=== PATIENT | male | born 1970 | race Caucasian/White ===

== ENCOUNTER 2016-11-09 11:28 | Observation (INO) | payer SELFPAY ==
[~2016-11-09] VITALS: Ht 175.3 cm; Wt 76.4 kg
[~2016-11-09 11:28] MED LIST: AZIT250T81 PO; CYCL10TA45 PO; HYDR-3702 PO
--- OUTSIDE RECORDS SUMMARY | 2016-11-09 11:31 | XMS REPORT | Continuity of Care Document ---
Author Author [facility] Organization [facility] Address Unknown Phone Unavailable Allergies Active Description Code Type Severity Reaction Onset Reported/Identified Relationship to Patient Clinical Status Yes No Known Drug Allergies Drug Allergy Unknown NONE 08/11/2013 Yes No Known Medication Allergies NKMA N/A N/A 02/27/2014 Medications Problems Procedures Results Encounters ACCT No. Visit Date/Time Discharge Status Pt. Type Provider Facility Loc./Unit Complaint [id number] 08/11/2013 12:02:00 2013 15:19:00 DIS Emergency Lenora MRALOW, Arnulfo Vides [facility] SASHA
--- OUTSIDE RECORDS SUMMARY | 2016-11-09 11:34 | XMS REPORT | Continuity of Care Document ---
Author Author [facility] Organization [facility] Address Unknown Phone Unavailable Allergies Active Description Code Type Severity Reaction Onset Reported/Identified Relationship to Patient Clinical Status Yes No Known Drug Allergies Drug Allergy Unknown NONE 08/11/2013 Yes No Known Medication Allergies NKMA N/A N/A 02/27/2014 Medications Problems Procedures Results Encounters ACCT No. Visit Date/Time Discharge Status Pt. Type Provider Facility Loc./Unit Complaint [id number] 08/11/2013 12:02:00 2013 15:19:00 DIS Emergency Lenora MARLOW, Arnulfo Vides [facility] SASHA
[2016-11-09] MEDS ORDERED: IBP200T PO (11:48)
[2016-11-09] MEDS ORDERED: SODIUM CHLORIDE FLUSH 3 ML SYR IV PRN (12:20)
[2016-11-09 12:40] LABS: BASOPHILS % (AUTO) 1 % (0-2); EOSINOPHILS # (AUTO) 0.2 10^3uL; EOSINOPHILS % (AUTO) 3 % (0-4); LYMPHOCYTES # (AUTO) 2.1 X10^3; MEAN CORPUSCULAR VOLUME 94 FL (80-100); MEAN PLATELET VOLUME 9.6 FL (6.0-9.5); MONOCYTES # (AUTO) 0.6 X10^3; MONOCYTES % (AUTO) 9 % (3-11); NEUTROPHILS # (AUTO) 3.3 X10^3; NEUTROPHILS % (AUTO) 54 % (51-67); PLATELET COUNT 262 10^3uL (150-450)
[2016-11-09 12:41] LABS: MEAN CORPUSCULAR HEMOGLOBIN 32.9 PG (26.0-34.0)
[2016-11-09 12:49] LABS: ALBUMIN 4.1 g/dL (3.4-5.0); ANION GAP 12.1 MEQ/L (3-15); CALCULATED IONIZED CALCIUM 4.1 mg/dL (3.8-4.6)
--- NOTE | 2016-11-09 13:13 | Diagnostic Imaging Report ---
INDICATION: Back pain. FINDINGS: Upright chest shows the lungs to be clear. There is nipple piercing noted on the left. Heart is not enlarged. There is no pulmonary edema. No hilar adenopathy. No pneumothorax or pleural effusion. Upright and supine abdomen shows no free air under the diaphragm. There is no evidence of stool burden within the colon. There is actually very little stool present. Stomach and small bowel show some air present with no distended loops of bowel or air-fluid levels. There is no organomegaly. No pathologic calcification. There is question of possible pars defect along the L5 facet on the left. IMPRESSION: 1. No acute changes noted within the abdomen. No evidence of bowel obstruction. 2. Question of possible pars defect noted on the left at L5. Dictated by: Dictated on workstation # [id number]
[2016-11-09] MEDS ORDERED: HYDROmorphone 1 MG/ML (DILAUDID) SYRINGE IV ONE (13:25)
--- NOTE | 2016-11-09 13:57 | History and Physical (E) ---
History & Physical PCP: NONE CC: Rectal bleeding HPI: Ira is a 46 year old male who comes to the ED for complaints of bright red rectal bleeding. Noticed it this am, red blood on toilet tissue and one drop in toilet. It scared him to where he came to the ED. He admits to having chronic back pain and take 6-8 ibuprofen (200mg) tabs several times a day for a long time. Anoscope in ED showed redness and irritation in rectal vault. No fevers, no diarrhea, WBC normal, HGB 14.9. Abdominal series was negative. Lipase elevated over 1000. No alcohol use reported. Admits to THC use at times. He denied any chest pain or severe abdominal pain surprisingly. No vomiting. He does admit to GERD like symptoms and gas. No weight loss, no fatigue reported. PMH: Asthma Chronic back pain- no reported injury Borderline HTN Umbilical Hernia Tobacco Abuse Kidney Stones PSH: Kidney stone extraction Shoulder surgery Knee Surgery T&A ALLERGIES: NONE HOME MEDICATIONS: Ibuprofen daily FH: Father has diverticulitis- colon resection Mother is well SH: - 6 children heavy Smoker, 1 1/2-2 PPD no alcohol, works at [employer], Admits to THC use ROS: CONSTITUTION: Denies weight loss or gain. Denies fever or chills. HEENT: No change in vision or hearing. No sores in mouth, sore throat. CV: No chest pain, palpitations. PULM: No cough, shortness of breath, difficulty breathing. GI: Endorses mild upset stomach, No nausea, No vomiting, No constipation, Occasional diarrhea. Endorses red blood in stool. : No dysuria. No blood in urine. MS: No new muscle or joint aches and pains.Chronic back pain NEURO: No numbness or tingling. No weakness. INTEG: No rashes, lesions, or sores. ENDO: No heat or cold intolerance. No polydipsia or polyuria. HEME/LYMPH: No easy bruising or bleeding. No swollen glands. PSYCH: No change in mood or behavior. OBJECTIVE: Vital Signs Date Time Temp Pulse Resp B/P Pulse Ox O2 Delivery O2 Flow Rate FiO2 11/09/16 11:48 98.5 101 20 168/90 96 Room Air GEN: Awake, alert, oriented, NAD HEENT: EOMI, PERRL, moist oral mucosa. Ear piercing on tragus bilaterally CV: RRR S1 S2 normal with no murmur LUNGS: CTA B ABD: Soft, Mild epigastrium tenderness, with normal bowel sounds. EXTR: No C/C/E. Normal peripheral pulses. INTEG: No rash. multiple tattoos NEURO: No focal motor neuro deficit. Weight: 77.9 kg Laboratory Results Past 24 Hrs 11/09/16 12:34: Alanine Aminotransferase (ALT/SGPT) 20, Albumin 4.1, Albumin/Globulin Ratio 1.413, Alkaline Phosphatase 50, Anion Gap 12.1, Aspartate Amino Transf (AST/SGOT ) 21, BUN/Creatinine Ratio 17, Basophils # (Auto) 0.0, Basophils (%) (Auto) 1, Blood Urea Nitrogen 13, Calcium Level 9.3, Calcium/Ionized Calcium Ratio 4.1, Calculated Osmolality 273, Carbon Dioxide Level 24, Chloride Level 110, Creatinine 0.77, Eosinophils # (Auto) 0.2, Eosinophils (%) (Auto) 3, Estimat Glomerular Filtration Rate 131.0, Estimated GFR (Non- 108.3, Glucose Level 87, Hematocrit 42.60, Hemoglobin 14.9, Lipase 1054, Lymphocytes # (Auto) 2.1, Lymphocytes (%) (Auto) 34, Mean Corpuscular Hemoglobin 32.9, Mean Corpuscular Hemoglobin Concent 35.0, Mean Corpuscular Volume 94, Mean Platelet Volume 9.6, Monocytes # (Auto) 0.6, Monocytes (%) (Auto) 9, Neutrophils # (Auto ) 3.3, Neutrophils (%) (Auto) 54, Platelet Count 262, Potassium Level 4.1, Red Blood Count 4.53, Red Cell Distribution Width 12.6, Sodium Level 142, Total Bilirubin 0.4, Total Protein 7.0, White Blood Count 6.20 11/09/16 13:19: Stool Occult Blood Negative IMAGING- Abdominal series negative in the ED ASSESSMENT/PLAN: Ira is a 46 year old male who comes to the ED today 11-09-16 for bright red rectal bleeding ? Hemorrhoidal? Colitis? and elevated lipase. Concerning for Pancreatitis? never has had before and does not use alcohol, mild abdominal pain reported today Asthma- stable- was given inhaler by a friend- doesn't have one of his own Chronic Back Pain- uses 6-8 ibuprofen several times a day. This is on hold. Will use IV Dilaudid for now. HTN- not on meds, could be up due to amount of ibuprofen and Pain Tobacco Abuse- Nicotine patch F/V/E: IV Fluids- Clear liquids this taurus if remains stable Code Status: Full Code Disposition: Observation for now will have UR review case. See orders, May need CT abdomen and Pelvis - will see how well he does, Colonoscopy if continues to bleed, he is concerned he doesnt have insurance, Discussed Ester Primitivo or Benito Graf in [facility] for follow up. Allergies/Home Medications Allergies: Coded Allergies: No Known Allergies (Verified Allergy, Unknown, 11/09/16) Reported Home Medications Scheduled PRN Ibuprofen (Ibuprofen) 6-8 TAB PO TID PRN PRN PAIN (Reported) Discontinued Medications Azithromycin (Zithromax Z-Jatin) 250 MG PO SEE INSTRUCTIONS Discontinued Reason: Update list Cyclobenzaprine HCl (Flexeril) 10 MG PO Q8H Discontinued Reason: Update list Hydrocodone Bit/Acetaminophen (Hydrocodon-Acetaminophen 5-325) 1-2 EACH PO Q6H Discontinued Reason: Update list Copies to: End of Report . Roseann Paz APRN November 09, 2016 13:57 CECILIA RAIN DO November 09, 2016 15:51
[2016-11-09] MEDS ORDERED: PANTOPRAZOLE IV 40 MG in SODIUM CHLORIDE FLUSH 10 ML IV SCH (14:05)
[2016-11-09] MEDS ORDERED: ONDANSETRON 2 MG/ML (Z0FRAN) 2 ML VIAL IV PRN (14:05)
[2016-11-09] MEDS ORDERED: ACETAMINOPHEN 325 MG TAB (TYLENOL) PO PRN (14:05)
--- NOTE | 2016-11-09 14:10 | NUR ---
Patient admitted to room 302 from ER. Patient reports rectal bleeding at work this morning. Denies abdominal pain but states chronic back pain which was relieved by the dose of IV Dilaudid he received in ER. Patient reports several chronic health issues but does not have a PCP.
[2016-11-09 14:17] VITALS: BP 135/90
[2016-11-09 14:32] LABS: AMPHETAMINE SCREEN, URINE Negative (Negative); CANNABINOID SCREEN, URINE Positive (Negative); METHAMPHETAMINE SCREEN URINE S NEGATIVE (NEGATIVE); OPIATE SCREEN URINE Negative (Negative); PROPOXYPHENE STAT NEGATIVE (NEGATIVE)
[2016-11-09] MEDS ORDERED: NICOTINE 21 MG (NICODERM) PATCH TD SCH (14:35)
[2016-11-09 15:59] VITALS: BP 125/82
[2016-11-09] MEDS: HYDROmorphone 1 MG/ML (DILAUDID) SYRINGE IV PRN ×2 (17:16→21:49)
[2016-11-09] MEDS: SODIUM CHLORIDE FLUSH 10 ML SYR IV PRN ×2 (17:17→21:49)
--- NOTE | 2016-11-09 17:31 | Diagnostic Imaging Report ---
INDICATION: Low back pain extending into right SI region. FINDINGS: AP pelvis shows SI joints are symmetrical. There is some sclerotic change along the SI joints bilaterally, predominantly in the upper third. This is symmetrical in appearance. The sacral foramen appears normal. No fractures are demonstrated. Pubic symphysis is in good alignment. Femoral heads show normal articulation. There is moderate degenerative disease noted along the femoral acetabular joint slightly more severe on the right with sclerosis and mild hypertrophic changes. IMPRESSION: 1. Mild degenerative changes with sclerosis along the SI joints bilaterally. 2. Degenerative changes of the hips more prominent on the right. Dictated by: Dictated on workstation # [id number]
--- NOTE | 2016-11-09 17:37 | Diagnostic Imaging Report ---
INDICATION: Back pain, right S1 and L5 area. COMPARISON STUDIES: None. FINDINGS: Frontal and lateral views of the lumbar spine demonstrate mild facet arthropathy at L5-S1. Mild disc space narrowing is present at this level. No fracture or subluxation is present. IMPRESSION: There are mild degenerative changes at L5-S1. Dictated by: Dictated on workstation # [id number]
--- NOTE | 2016-11-09 18:18 | NUR ---
Patient has remained NPO without complaint of abdominal pain. Lab was here at 1800 for hemoglobin check. Reported back pain which was relieved by PRN Dilaudid dose.
--- NOTE | 2016-11-09 18:45 | NUR ---
Hemoglobin result= 13.9. Advanced diet to clear liquids. Patient was able to take this without difficulty.
[2016-11-10 00:06] VITALS: BP 113/67
--- NOTE | 2016-11-10 02:57 | NUR ---
Patient calls, states he has an "excruciating headache". Offered Tylenol and Dilaudid, Tylenol given per PRN list. Patient states "It's because of this bed and because I can't sleep in it." Encouraged patient to get up into recliner, and offered warm blanket. Will continue to monitor.
[2016-11-10 05:46] LABS: BASOPHILS % (AUTO) 1 % (0-2); EOSINOPHILS # (AUTO) 0.3 10^3uL; EOSINOPHILS % (AUTO) 5 % (0-4); LYMPHOCYTES # (AUTO) 2.1 X10^3; MEAN CORPUSCULAR HGB CONC 33.9 g/dL (31.0-37.0); MEAN CORPUSCULAR VOLUME 95 FL (80-100); MEAN PLATELET VOLUME 9.6 FL (6.0-9.5); MONOCYTES # (AUTO) 0.6 X10^3; MONOCYTES % (AUTO) 11 % (3-11); NEUTROPHILS # (AUTO) 2.6 X10^3; NEUTROPHILS % (AUTO) 46 % (51-67); PLATELET COUNT 245 10^3uL (150-450); WHITE BLOOD COUNT 5.67 10^3uL (4.0-11.0)
[2016-11-10 05:56] LABS: MEAN CORPUSCULAR HEMOGLOBIN 32.1 PG (26.0-34.0)
[2016-11-10] MEDS: HYDROmorphone 1 MG/ML (DILAUDID) SYRINGE IV PRN (06:14)
--- NOTE | 2016-11-10 06:26 | NUR ---
Patient sitting in bed in position, states "I feel worse than when I came in here. I didn't even come in here for my back and now my pain is awful." Dilaudid 1mg IV given per PRN order. Patient states several times "I just want to go home" while this nurse is in room. Warm blanket provided for patient's back. Patient restless in bed trying to find comfortable position. Encouraged patient to get up to recliner if bed was uncomfortable for him, patient states "I just can't sleep in a recliner." No further needs at this time.
[2016-11-10 06:33] LABS: ANION GAP 9.3 MEQ/L (3-15)
[2016-11-10 07:36] VITALS: BP 130/84
--- NOTE | 2016-11-10 08:34 | NUR ---
NUTRITION ASSESSMENT Level 1 Patient: Ira Cox Age/Sex: 46/M Date Screened: 11-10-16 Weight: 168#/76.4 kg Height: 69 inches Primary Diagnosis: rectal bleeding Diet Order: CL Relevant labs: stool occult blood (-), glucose 90, lipase 127 Food allergies: N Nutrition Assessment Criteria Age over 80: N Body Mass Index (BMI) under 19: N Admission Screening Indicates Risk? N Moderate/High Risk Diagnosis: 3 points TPN or PPN: N NPO or clear liquid diet: Yes Serum Glucose <70 or >180: N Hgb A1c >6.7: N/A Total: 3 points Risk Screen: __ Patient at low nutritional risk based on available data; reevaluate in 5-7 days _X_ Patient at moderate nutritional risk based on available data; reevaluate in 3-5 days __ Patient at high nutritional risk; complete Nutrition Assessment within 48 hours of admission. Comments: Weight has been stable; weighed 165# in 2015. Taking 25-50% of CL diet without difficulty; will reassess as documented above.
[2016-11-10] MEDS ORDERED: NICOTINE PATCH REMOVAL TOP SCH (08:59)
[2016-11-10] MEDS ORDERED: OMEP20TA33 PO (09:13)
[2016-11-10] MEDS ORDERED: HYDR-3702 PO (09:13)
[2016-11-10] MEDS ORDERED: CYCL10TA45 PO (09:13)
--- NOTE | 2016-11-10 09:15 | Discharge Instructions (E) ---
Discharge Instructions Instructions Avoid taking any ibuprofen Monitor stools Can take a stool softener daily if needed Notify Ester Langford for a follow up appt in a week Activity Instructions as tolerates Doctor's Appointment Appt soon with Ester Langford- pt to make appt Discharge Diet: Roseann Villarreal APRN November 10, 2016 09:15
--- NOTE | 2016-11-10 09:36 | Discharge Summary (E FT) ---
Discharge Summary (E FT) Admit Date November 09, 2016 at 13:41 Discharge Date November 10, 2016 Admitting Provider Constantin Mccormick DO Primary Care Provider Attending Provider Constantin Mccormick DO Consulting Provider Hospital Course Summary HPI: Ira is a 46 year old male who comes to the ED for complaints of bright red rectal bleeding. Noticed it this am, red blood on toilet tissue and one drop in toilet. It scared him to where he came to the ED. He admits to having chronic back pain and take 6-8 ibuprofen (200mg) tabs several times a day for a long time. Anoscope in ED showed redness and irritation in rectal vault. No fevers, no diarrhea, WBC normal, HGB 14.9. Abdominal series was negative. Lipase elevated over 1000. No alcohol use reported. Admits to THC use at times. He denied any chest pain or severe abdominal pain surprisingly. No vomiting. He does admit to GERD like symptoms and gas. No weight loss, no fatigue reported. Overnight he did well- reported not sleeping well in hospital bed, back is sore Lumbar xray shows degenerative changes nothing acute Vital Signs Date Time Temp Pulse Resp B/P Pulse Ox O2 Delivery O2 Flow Rate FiO2 11/10/16 07:36 97.4 62 18 130/84 95 Room air Laboratory Results Past 24 Hrs 11/09/16 11:58: Ur Tricyclic Antidepressants Screen Negative, Urine Amphetamines Screen Negative , Urine Barbiturates Screen Negative, Urine Benzodiazepines Screen Positive, Urine Cannabinoids Screen Positive, Urine Cocaine Screen Negative, Urine Methadone Screen Negative, Urine Methamphetamines Screen Negative, Urine Opiates Screen Negative, Urine Oxycodone Screen Negative, Urine Phencyclidine Screen Negative, Urine Propoxyphene Screen Negative 11/09/16 12:34: Alanine Aminotransferase (ALT/SGPT) 20, Albumin 4.1, Albumin/Globulin Ratio 1.413, Alkaline Phosphatase 50, Amylase Level 129, Anion Gap 12.1, Aspartate Amino Transf (AST/SGOT) 21, BUN/Creatinine Ratio 17, Basophils # (Auto) 0.0, Basophils (%) (Auto) 1, Blood Urea Nitrogen 13, Calcium Level 9.3, Calcium/ Ionized Calcium Ratio 4.1, Calculated Osmolality 273, Carbon Dioxide Level 24, Chloride Level 110, Creatinine 0.77, Eosinophils # (Auto) 0.2, Eosinophils (%) ( Auto) 3, Estimat Glomerular Filtration Rate 131.0, Estimated GFR (Non- 108.3, Glucose Level 87, Hematocrit 42.60, Hemoglobin 14.9, Lipase 1054 , Lymphocytes # (Auto) 2.1, Lymphocytes (%) (Auto) 34, Mean Corpuscular Hemoglobin 32.9, Mean Corpuscular Hemoglobin Concent 35.0, Mean Corpuscular Volume 94, Mean Platelet Volume 9.6, Monocytes # (Auto) 0.6, Monocytes (%) (Auto ) 9, Neutrophils # (Auto) 3.3, Neutrophils (%) (Auto) 54, Platelet Count 262, Potassium Level 4.1, Prothromb Time International Ratio 1.0, Prothrombin Time 10.7, Red Blood Count 4.53, Red Cell Distribution Width 12.6, Sodium Level 142, Total Bilirubin 0.4, Total Protein 7.0, White Blood Count 6.20 11/09/16 13:19: Stool Occult Blood Negative 11/09/16 18:05: Hematocrit 40.30, Hemoglobin 13.8 11/10/16 05:35: Anion Gap 9.3, BUN/Creatinine Ratio 11, Basophils # (Auto) 0.0, Basophils (%) ( Auto) 1, Blood Urea Nitrogen 9, Calcium Level 8.5, Carbon Dioxide Level 28, Chloride Level 109, Creatinine 0.85, Eosinophils # (Auto) 0.3, Eosinophils (%) ( Auto) 5, Estimat Glomerular Filtration Rate 116.9, Estimated GFR (Non- 96.6, Glucose Level 90, Hematocrit 44.00, Hemoglobin 14.9, Lipase 127, Lymphocytes # (Auto) 2.1, Lymphocytes (%) (Auto) 37, Mean Corpuscular Hemoglobin 32.1, Mean Corpuscular Hemoglobin Concent 33.9, Mean Corpuscular Volume 95, Mean Platelet Volume 9.6, Monocytes # (Auto) 0.6, Monocytes (%) (Auto ) 11, Neutrophils # (Auto) 2.6, Neutrophils (%) (Auto) 46, Platelet Count 245, Potassium Level 4.1, Red Blood Count 4.64, Red Cell Distribution Width 12.4, Sodium Level 142, White Blood Count 5.67 Exam: alert and oriented, NAD- tolerating diet HEENT- PERRLA EOMI Lungs clear bilaterally CV S1S2 Abdomen soft nontender today- no further rectal bleeding and hgb 13.8 today Neuro: No focal neuro changes IMAGING- Abdominal series negative in the ED ASSESSMENT/PLAN: Ira is a 46 year old male who comes to the ED today 5-16-17 for bright red rectal bleeding likely Hemorrhoidal? and elevated lipase. Concerning for Pancreatitis? never has had before and does not use alcohol, mild abdominal pain reported today Asthma- stable- was given inhaler by a friend- doesn't have one of his own Chronic Back Pain- Avoid ibuprofen, will send home with flexeril and a few Lortab. HTN- not on meds, could be up due to amount of ibuprofen and Pain- Better today. Tobacco Abuse- Nicotine patch here but advised no smoking Code Status: Full Code Disposition: Home today per pt request- will have him establish with Ester Langford- may need colonoscopy if re bleeds. Avoid ibuprofen, use tylenol for pain or Lortab for severe pain. Discussed Ester Langford - he will call for an appt this week. Discharge Disposition Home today per request Appt with Ester Langford in 1 week for f/u New Medications: Cyclobenzaprine HCl (Flexeril) 10 Mg Tablet 10 MG PO HS Muscle Spasms #10 Ref 0 TAB Hydrocodone Bit/Acetaminophen (Hydrocodon-Acetaminophen 5-325) 1 Each Tablet 1 EACH PO Q6H Pain #10 Ref 0 TAB Omeprazole Magnesium (Prilosec OTC) 20 Mg Tablet.dr 20 MG PO DAILY #30 TAB Discontinued Medications: Ibuprofen (Ibuprofen) 200 Mg Tablet 6-8 TAB PO TID PRN PAIN Ref 0 TAB Follow up Instructions Avoid taking any ibuprofen Monitor stools Can take a stool softener daily if needed Notify Ester Langford for a follow up appt in a week Avoid using THC Copies to: End of Report . Roseann Paz [employer]OND [employer]ER November 10, 2016 09:36
--- NOTE | 2016-11-10 10:00 | NUR ---
Patient was able to eat a regular breakfast without any difficulty. No further episodes of rectal bleeding noted.
--- NOTE | 2016-11-10 10:40 | NUR ---
Gave the patient discharge instructions and printed scripts for flexeril and hydrocodone. Educated him on the importance of establishing care with a PCP for recurrent back and neck pain. Patient demonstrated verbal understanding.
--- NOTE | 2016-11-10 10:46 | NUR ---
Patient dismissed ambulatory accompanied by a LINEN SORTER.
== END 2016-11-10 10:46 | disposition home or self-care (01) ==
LOC: ED 11:30 → MED/SURG 13:41
DX: K62.5 Hemorrhage of anus and rectum (principal); G89.29 Other chronic pain; M47.896 Other spondylosis, lumbar region; F17.210 Nicotine dependence, cigarettes, uncomplicated; I10 Essential (primary) hypertension; J45.909 Unspecified asthma, uncomplicated; Z87.442 Personal history of urinary calculi
CPT/HCPCS: 36415; 72100; 72170; 74022; 80048; 80053; 80307; 82150; 82274; 83690; 85014; 85018; 85025; 85610; 96361; 96374; 99283; C9113; J1170; J7030; 96375; 96376; 99218; 99284